=== PATIENT | male | born 1945 | race Caucasian/White ===

== ENCOUNTER 2016-12-23 08:05 | Outpatient (CLI) | payer MEDICARE, BC ==
--- NOTE | 2016-12-23 09:38 | CT ---
HEAD CT WITHOUT CONTRAST: Date: 12-23-16 Comparison: None. History: Cervical occipital neuralgia. Technique: Serial axial CT imaging at 5 mm intervals from vertex through skull base without contrast . FINDINGS: There is a nonspecific right sided mastoid effusion. Left mastoid air cells appear well aerated. The re is wall thickening and mucosal thickening of the sphenoid sinus on the right suggesting a degree of chronic sinusitis. There is no intracranial hemorrhage, midline shift or mass effect. There is mild cerebral volume los s. IMPRESSION: No acute findings. POS: [facility]
== END 2016-12-23 08:06 | disposition home or self-care (01) ==
LOC: NAV CT 08:05
PROVIDERS: ATTEND Family Medicine
DX: M54.81 Occipital neuralgia (principal)
CPT/HCPCS: 70450

== ENCOUNTER 2017-04-07 21:02 | Emergency (ER) | payer BC, MEDICARE ==
[~2017-04-07 21:02] MED LIST: DOPamine/D5W 400 mg/250 ml PREMIX ONE; EPINEPHrine 1 MG/10 ML Abboject SYRINGE ONE; Sodium Bicarb 50 MEQ/50 ML Abboject 8.4% SYRINGE ONE
[2017-04-07 21:40] LABS: ALT (SGPT) 59 U/L (8-55); AST (SGOT) 100 U/L (5-34); Albumin 2.9 g/dL (3.4-4.8); Alkaline Phosphatase 81 U/L (40-150); Anion Gap 19 mmol/L (10-20); BUN (Urea Nitrogen) 17 mg/dL (8.4-25.7); Bilirubin, Total 0.4 mg/dL (0.2-1.2); CK (CPK) 767 U/L (30-200); Calc. Creatinine Clearance 0 mL/min (70-130); Carbon Dioxide 20 mmol/L (23-31); Chloride 104 mmol/L (98-107); Estimated GFR-MDRD 31; Globulin 2.7 g/dL (2.4-3.5); Glucose 119 mg/dL (83-110); Protein, Total 5.6 g/dL (5.8-8.1); Sodium 138 mmol/L (136-145)
[2017-04-07 21:45] LABS: CKMB 21.3 ng/mL (0-6.6); Troponin I 0.805 ng/mL (< 0.028)
[2017-04-07] MEDS ORDERED: Norepinephrine 8 MG/0.9% NS 250 ML ONE (21:45)
[2017-04-07 21:48] LABS: INR-International Normal Ratio 1.2; Prothrombin Time 15.8 SEC (12.0-14.7)
[2017-04-07 21:50] LABS: Bilirubin Negative (Negative); Blood, Urine Small (Negative); Clarity Clear (Clear); Glucose, Urine (Dipstick) Negative (Negative); Leukocyte Negative (Negative); Nitrite Negative (Negative); Protein, Urine (Dipstick) > or equal to 300 mg/dL (Neg-Trace); Urobilinogen 0.2 mg/dL (0.2-1.0)
[2017-04-07 21:52] LABS: Acetaminophen Less than 6.0 mcg/mL (10.0-30.0); Alcohol Less than 10 mg/dL (Less than 10); Salicylate Less than 8.0 mg/dL (15.0-30.0)
[2017-04-07 21:54] LABS: Specific Gravity, Urine 1.016 (1.005-1.030)
[2017-04-07 22:00] LABS: Lipase 7 U/L (8-78)
[2017-04-07 22:02] LABS: D-Dimer Test 7.54 *mcg/mL (0.27-0.43)
[2017-04-07 22:06] LABS: Bacteria/HPF None Seen HPF (None Seen); Squamous Epithelial 0-3 HPF (0-3); WBC/HPF 0-3 HPF (0-3)
[2017-04-07 22:07] LABS: Amphetamine Not Detected (NotDetected); Barbiturates Screen Not Detected (NotDetected); Benzodiazepine Screen Not Detected (NotDetected); Cocaine Metabolite Screen Not Detected (NotDetected); Medtox Control Line Valid? VALID (VALID); Methadone Not Detected (NotDetected); Methamphetamine Not Detected (NotDetected); Opiate Screen Not Detected (NotDetected); Oxycodone Screen Detected (NotDetected); Phencyclidine (PCP) Not Detected (NotDetected); Sperm/HPF 1+ HPF (None Seen); THC/Cannabinoid Screen Not Detected (NotDetected); Tricyclic Screen Not Detected (NotDetected)
--- NOTE | 2017-04-07 22:07 | RAD ---
PORTABLE CHEST: 04/07/17 HISTORY: Endotracheal tube placement. COMPARISON: 11/09/16 study. Heart size appears borderline. Endotracheal tube is in satisfactory position. The lungs show chronic change without focal infiltrate. IMPRESSION: 1. Borderline heart size. 2. Endotracheal tube in satisfactory position. POS: [facility]
[2017-04-07] MEDS ORDERED: Enoxaparin Sodium 100 MG/ML SYRINGE ONE (22:22)
[2017-04-07 22:33] LABS: Hemoglobin 7.9 g/dL (14.0-18.0); Mean Corpuscular HGB CONC 28.7 g/dL (32.0-36.0); Mean Corpuscular Hemoglobin 25.8 pg (27.0-31.0); Mean Corpuscular Volume 89.9 fl (80.0-94.0); Platelet Count 137 thou/uL (130-400); RBC Distribution Width 15.7 % (11.5-14.5); Red Blood Cell (RBC) Count 3.05 mill/uL (4.70-6.10); White Blood Cell (WBC) Count 6.9 thou/uL (4.8-10.8)
[2017-04-07 22:57] LABS: #Lymphocytes 0.9 thou/uL (1.20-3.40); #Monocytes 0.5 thou/uL (0.11-0.59); #Neutrophils 5.5 thou/uL (1.40-6.50); %Basophils 0.7 % (0.0-1.0); %Eosinophils 0.1 % (0.0-10.0); %Monocytes 6.6 % (0.0-10.0); %Neutrophils 79.6 % (42.0-75.0); Anisocytosis SLIGHT = 6-15 cells (100X) (0-5/hpf); Hypochromia SLIGHT = 6-15 cells (100X) (0-5/hpf); MDiff Complete? YES
[2017-04-07 23:17] LABS: CKMB 46.4 ng/mL (0-6.6)
[2017-04-07 23:18] LABS: Troponin I 2.457 ng/mL (< 0.028)
--- NOTE | 2017-04-08 08:11 | RAD ---
PORTABLE CHEST ONE VIEW: Date: 04-08-17 Time: 1:01 a.m. History: Respiratory failure, tube placement. FINDINGS/IMPRESSION: There has been interval placement of a nasogastric tube with tip close to the GE junction. The remain david of the exam is otherwise stable. Recommend advancing the NG tube. Code T POS: [facility]
--- NOTE | 2017-04-09 07:49 | RAD ---
CHEST ONE VIEW: HISTORY: ET tube placement. COMPARISON: Chest one view from 11/09/2016. FINDINGS: The patient is intubated with the endotracheal tube tip above the level of the clavicles. Atelectati c changes in both lungs. The cardiac silhouette and mediastinal contours are unremarkable. IMPRESSION: Endotracheal tube tip above the level of the clavicles. Recommend advancing approximately 2 cm. POS: [facility]
== END 2017-04-07 23:25 | disposition short-term general hospital (02) ==
LOC: NAV ERS 21:02
DX: I46.9 Cardiac arrest, cause unspecified (principal); D50.9 Iron deficiency anemia, unspecified; K21.9 Gastro-esophageal reflux disease without esophagitis; G47.00 Insomnia, unspecified; E78.5 Hyperlipidemia, unspecified; K57.92 Diverticulitis of intestine, part unspecified, without perforation or abscess without bleeding; F06.30 Mood disorder due to known physiological condition, unspecified; M06.9 Rheumatoid arthritis, unspecified; Z79.899 Other long term (current) drug therapy
CPT/HCPCS: 31500; 36415; 51702; 71010; 80053; 80306; 80307; 81003; 81015; 82550; 82553; 83605; 83690; 83880; 84484; 85025; 85379; 85610; 85730; 92950; 93005; 94760; 96360; 96365; 96366; 96367; 96372; 96375; 99292; J0171; J1265; J1650